=== PATIENT | male | born 1970 | race American Indian/Alaskan Native ===

== ENCOUNTER 2018-01-07 14:28 | Outpatient (CLI) | payer MEDICARE ==
--- NOTE | 2018-01-07 14:56 | XRay Report ---
XRAY LEFT KNEE 4 THREE VIEWS: 01/07/18 CLINICAL: Left knee pain. FINDINGS: No fracture or dislocation. Joint spaces are normal. No joint effusion.Normal soft tissues. IMPRESSION: Normal study.
== END 2018-01-07 14:29 | disposition home or self-care (01) ==
LOC: SPVIMAG 14:28
PROVIDERS: ATTEND Orthopaedic Surgery Sports Medicine
DX: M25.562 Pain in left knee (principal)